=== PATIENT | male | born 1955 | race Caucasian/White ===

== ENCOUNTER 2016-10-29 09:55 | Emergency (ER) | payer SELFPAY ==
[~2016-10-29] VITALS: Ht 185.4 cm; Wt 65.8 kg
[~2016-10-29 09:55] MED LIST: SULF1TAB23 PO
[2016-10-29 09:59] VITALS: BP 129/85; PULSE 62; RESP 18; TEMP 97.6; O2SAT 100
[2016-10-29] MEDS ORDERED: BACT800T5 PO (10:30)
[2016-10-29] MEDS ORDERED: ACET500T36 PO (10:30)
--- NOTE | 2016-10-29 10:30 | PD ---
HPI Chief Complaint: Skin Problem Time Seen by Provider: 10:10 Travel History International Travel<30 days: No Contact w/Intl Traveler<30days: No Traveled to known affect area: No History of Present Illness HPI 61yo M with PMH of varicose veins and venous stasis dermatitis of left leg presents to the ED requesting prescription for antibiotics. Pt states he scratched his left leg 1 week ago because it was itchy and has surrounding pain where the scratch is. Pt states the redness has not gotten worst over the last few days. Denies any fever, chest pain, sob, n/v, abdominal pain, focal weakness or numbness or any other trauma. Pt was seen here last 04/2016 for cellulitis and rash on left leg and was given bactrim for 10 days for which he said the wound improved and wants the same medication. Pt states he is saving money for a vein procedure. Last tetanus as per our record is 2012. PFSH Past Medical History Arthritis: Yes Blood Disorders: No Anxiety: Yes Depression: Yes Cancer: No Cardiovascular Problems: No Diabetes: No Diminished Hearing: No Endocrine: No Gastrointestinal Disorders: No Genitourinary: No Immune Disorder: No Implanted Vascular Access Dvce: No Musculoskeletal: Yes Neurologic: No Reproductive: No Respiratory: No Thyroid Disease: No Influenza Vaccination: No Past Surgical History Surgical History: No Previous Surgery Other Surgery: No Social History Alcohol Use: Yes (2 TIMES A MONTH) Tobacco Use: Yes (1.5 PPD) Substance Use: No Allergies-Medications (Allergen,Severity, Reaction): Coded Allergies: No Known Allergies (Verified , 10/29/16) Reported Meds & Prescriptions Reported Meds & Active Scripts Active Acetaminophen Extra Strength (Acetaminophen) 500 Mg Tab 500 Mg PO Q6H PRN Bactrim DS (Sulfamethoxazole-Trimethoprim) 800-160 Mg Tab 1 Tab PO BID Review of Systems Except as stated in HPI: all other systems reviewed are Neg Physical Exam Narrative GENERAL: 61yo M not in distress. SKIN: Focused skin assessment warm/dry. HEAD: Atraumatic. Normocephalic. CARDIOVASCULAR: Regular rate and rhythm. No murmur appreciated. RESPIRATORY: No accessory muscle use. Clear to auscultation. Breath sounds equal bilaterally. GASTROINTESTINAL: Abdomen soft, non-tender, nondistended. MUSCULOSKELETAL: LLE: +Varicose veins and discoloration of distal tib/fib to ankle that is chronic. +6cm by 0.5cm linear wound above medial malleolus with mild surrounding erythema. No fluctuance. Not foul smelling. DP 2+. Sensation intact. FROM left ankle and knee. NEUROLOGICAL: Awake and alert. No obvious cranial nerve deficits. Motor grossly within normal limits. Normal speech. PSYCHIATRIC: Appropriate mood and affect; insight and judgment normal. Data Data Last Documented VS Vital Signs Date Time Temp Pulse Resp B/P Pulse Ox O2 Delivery O2 Flow Rate FiO2 10/29/16 09:59 97.6 62 18 129/85 100 [facility] Medical Decision Making Medical Screen Exam Complete: Yes Emergency Medical Condition: Yes Interpretation(s) Vital Signs Date Time Temp Pulse Resp B/P Pulse Ox O2 Delivery O2 Flow Rate FiO2 10/29/16 09:59 97.6 62 18 129/85 100 Differential Diagnosis Left leg cellulitis vs. venous stasis dermatitis Narrative Course 61yo M well appearing male here with c/o pain around his left leg where he scratched it. Tetanus up to date. VS stable with no fever, tachycardia or signs of sepsis. Will prescribe bactrim and acetaminophen. Strict return precautions if wound worsens on antibiotic. Diagnosis Primary Impression: Cellulitis of left leg Patient Instructions: General Instructions Departure Forms: Tests/Procedures Additional Instructions: Please return to the ED immediately if your wound worsens while on antibiotics or if you have fever, worsening pain or any other concerning symptoms. Med/Other Pt SpecificInfo: Prescription(s) given Scripts Acetaminophen (Acetaminophen Extra Strength)500 Mg [id number] Mg PO Q6H PRN (PAIN SCALE 1 TO 4) #20 TAB Ref 0 Prov:Cherry Alberts DO 10/29/16 Sulfamethoxazole-Trimethoprim (Bactrim DS)800-160 Mg Tab1 Tab PO BID #20 TAB Ref 0 Prov:Cherry Alberts DO 10/29/16 Disposition: 01 DISCHARGE HOME Condition: Stable Cherry Alberts DO October 29, 2016 10:30
== END 2016-10-29 10:42 | disposition home or self-care (01) ==
LOC: PHED 09:55
DX: L03.116 Cellulitis of left lower limb (principal); I83.12 Varicose veins of left lower extremity with inflammation; F17.210 Nicotine dependence, cigarettes, uncomplicated
CPT/HCPCS: 99282

== ENCOUNTER 2017-01-20 08:04 | Emergency (ER) | payer SELFPAY ==
[~2017-01-20] VITALS: Ht 185.4 cm; Wt 66.5 kg
[~2017-01-20 08:04] MED LIST changes: +ACET500T36 PO; +BACT800T5 PO; -SULF1TAB23 PO
[2017-01-20 08:09] VITALS: BP 136/75; PULSE 50; RESP 16; TEMP 97.1; O2SAT 100
[2017-01-20] MEDS ORDERED: BACT800T5 PO (08:24)
--- NOTE | 2017-01-20 08:27 | PD ---
HPI Chief Complaint: Pain: Acute or Chronic Time Seen by Provider: 08:17 Travel History International Travel<30 days: No Contact w/Intl Traveler<30days: No Traveled to known affect area: No History of Present Illness HPI This patient complains of an infection in his left lower leg. He has chronic large varicosities and gets this frequently. He just wants a prescription for antibiotics. He denies fever or active drainage. Severity is mild PFSH Past Medical History Arthritis: Yes Blood Disorders: No Anxiety: Yes Depression: Yes Cancer: No Cardiovascular Problems: Yes (PVD) Diabetes: No Diminished Hearing: No Endocrine: No Gastrointestinal Disorders: No Genitourinary: No Immune Disorder: No Implanted Vascular Access Dvce: No Musculoskeletal: Yes Neurologic: No Reproductive: No Respiratory: No Thyroid Disease: No Tetanus Vaccination: < 5 Years Influenza Vaccination: No Past Surgical History Surgical History: No Previous Surgery Other Surgery: No Social History Alcohol Use: No (QUIT) Tobacco Use: Yes (1.5 PPD) Substance Use: No Allergies-Medications (Allergen,Severity, Reaction): Coded Allergies: No Known Allergies (Verified , 01/20/17) Reported Meds & Prescriptions Reported Meds & Active Scripts Active Bactrim DS (Sulfamethoxazole-Trimethoprim) 800-160 Mg Tab 1 Tab PO BID Review of Systems General / Constitutional: No: Fever HENT: No: Headaches Cardiovascular: No: Chest Pain or Discomfort Physical Exam Narrative Psych: Normal mood and affect. Normal insight and judgment. GASTROINTESTINAL: Abdomen soft, non-tender, nondistended. Positive bowel sounds. No hepato-splenomegaly, or palpable masses. No guarding. Left lower leg shows some hyperpigmentation stasis with large varicosities. There is a small area on the medial side of the left ankle that has some yellow honey crusting without fluctuance or drainage Data Data Last Documented VS Vital Signs Date Time Temp Pulse Resp B/P Pulse Ox O2 Delivery O2 Flow Rate FiO2 01/20/17 08:09 97.1 50 16 136/75 100 [facility] Medical Decision Making Medical Screen Exam Complete: Yes Emergency Medical Condition: Yes Medical Record Reviewed: Yes Differential Diagnosis Cellulitis, abscess, dermatitis Narrative Course I have reviewed the patient's electronic medical record. He was here in October 2016 for the same thing I have written him one week of Bactrim The patient was advised to follow up with their physician and return if they worsen. Diagnosis Primary Impression: Cellulitis of left leg Additional Impression: Venous stasis dermatitis of left lower extremity Additional Instructions: The patient was advised to follow up with their physician and return if they worsen. Med/Other Pt SpecificInfo: Prescription(s) given Scripts Sulfamethoxazole-Trimethoprim (Bactrim DS)800-160 Mg Tab1 Tab PO BID #14 TAB Ref 0 Prov:Esteban Zavala MD 01/20/17 Disposition: 01 DISCHARGE HOME Condition: Stable Esteban Zavala MD Jan 20, 2017 08:27
== END 2017-01-20 08:34 | disposition home or self-care (01) ==
LOC: PHED 08:04
DX: L03.116 Cellulitis of left lower limb (principal); I87.2 Venous insufficiency (chronic) (peripheral); I83.892 Varicose veins of left lower extremity with other complications; F17.200 Nicotine dependence, unspecified, uncomplicated; Z87.39 Personal history of other diseases of the musculoskeletal system and connective tissue; Z86.59 Personal history of other mental and behavioral disorders; Z86.79 Personal history of other diseases of the circulatory system; I83.92 Asymptomatic varicose veins of left lower extremity
CPT/HCPCS: 99283